=== PATIENT | female | born 1940 | race Caucasian/White ===

== ENCOUNTER 2018-08-10 09:50 | Emergency (ER) | payer OTHER, MEDICARE ==
[2018-08-10 09:57] VITALS: BP 149/78; PULSE 74; TEMP 97.8; BMI 26.5
--- NOTE | 2018-08-10 10:54 | PDOC ---
History of Present Illness - General Chief Complaint: Injury Stated Complaint: FALL Time Seen by Provider: 08/10/18 10:19 History Source: Patient Exam Limitations: No Limitations - History of Present Illness Initial Comments: 08/10/18 10:37 77-year-old female presents to the emergency room with complaints of left upper/ mid back pain worsened with movement and deep breathing. Patient states 3 days ago fell down 7 carpeted steps after missing a step. Patient states has been taking tramadol since with moderate relief but decided to come to the ER when symptoms continued today. Patient denies anterior chest pain, abdominal pain, low back pain hematuria, anticoagulation therapy, or recent injury to the affected area. Occurred: reports: other Severity: reports: mild Pain Location: reports: back Method of Injury: Yes: fall Loss of Consciousness: no loss of consciousness Associated Symptoms (Fall): denies symptoms Past History - Travel Traveled outside of the country in the last 30 days: No Close contact w/someone who was outside of country & ill: No - Past Medical History Allergies/Adverse Reactions: Allergies Allergy/AdvReac Type Severity Reaction Status Date / Time No Known Drug Allergies Allergy Verified 08/10/18 09:52 Home Medications: Ambulatory Orders Simvastatin [Zocor -] 10 mg PO HS #0 tablet 10/23/12 Tramadol HCl [Ultram] 50 mg PO TID 08/10/18 COPD: No Hypercholesterolemia: Yes - Immunization History Immunization Up to Date: Yes - Suicide/Smoking/Psychosocial Hx Smoking History: Never smoked Hx Alcohol Use: No Drug/Substance Use Hx: No Patient Lives Alone: No Lives with/in: spouse/SO Trauma Specific PMHX - Complaint Specific PMHX Back Injury: No Review of Systems - Review of Systems Able to Perform ROS?: No Constitutional: No: Symptoms Reported HEENTM: No: Symptoms Reported Respiratory: No: Symptoms reported Cardiac (ROS): No: Symptoms Reported, Chest Pain ABD/GI: No: Symptoms Reported : No: Symptoms Reported Musculoskeletal: Yes: Joint Pain (left ribs left back) Integumentary: Yes: Bruising (right upper back) Neurological: No: Headache, Dizziness *Physical Exam - Vital Signs Last Vital Signs Temp Pulse Resp BP Pulse Ox 97.8 F 74 18 149/78 96 08/10/18 09:54 08/10/18 09:54 08/10/18 09:54 08/10/18 09:54 08/10/18 09:54 - Physical Exam General Appearance: Yes: Nourished, Appropriately Dressed. No: Apparent Distress HEENT: positive: EOMI, NICOLÁS, TMs Normal, Pharynx Normal. negative: Pale Conjunctivae Neck: positive: Supple. negative: Decreased range of motion Respiratory/Chest: positive: Lungs Clear, Normal Breath Sounds. negative: Chest Tender, Respiratory Distress, Accessory Muscle Use Cardiovascular: positive: Regular Rhythm, Regular Rate. negative: Murmur Gastrointestinal/Abdominal: positive: Soft. negative: Tenderness Musculoskeletal: negative: CVA Tenderness, Vertebral Tenderness Integumentary: positive: Normal Color, Warm, Moist, Bruising (right upper back) Neurologic: positive: Normal Mood/Affect, Motor Strength 5/5 (ambulatory) Moderate Sedation - Procedure Monitoring Vital Signs: Procedure Monitoring Vital Signs Temperature 97.8 F 08/10/18 09:54 Pulse Rate 74 08/10/18 09:54 Respiratory Rate 18 08/10/18 09:54 Blood Pressure 149/78 08/10/18 09:54 O2 Sat by Pulse Oximetry (%) 96 08/10/18 09:54 Heart Score/ECG Review - ECG Intrepretation Rhythm: Regular Rhythm (Normal sinus rhythm at 64) ED Treatment Course - RADIOLOGY Radiology Studies Ordered: Category Date Time Status RIBS-LEFT SIDE [RAD] Stat Radiology 08/10/18 10:19 Taken Medical Decision Making - Medical Decision Making 08/10/18 10:44 Chief complaint: Left posterior back pain worsened with movement deep breathing. Status post fall down 7 carpeted steps 3 days prior. No anterior chest pain no abdominal pain Exam: Tenderness noted over midclavicular line to the left posterior 9 to 11th rib. No crepitus noted deformity Plan: Rib x-ray and EKG ordered 08/10/18 11:03 Rib x-ray essentially negative. Patient remains concerning for fracture. Patient would've for CT without contrast of the chest 08/10/18 12:35 Chest negative for acute findings. Radiologist did read compression of T6. Patient had no tenderness to the vertebral column . Patient will be discharged home with supportive care instructions for rib contusion. 08/10/18 12:36 *DC/Admit/Observation/Transfer Diagnosis at time of Disposition: Contusion of rib on left side - Discharge Dispostion Disposition: HOME Condition at time of disposition: Good - Referrals Referrals: Tavo Steinberg MD [Primary Care Provider] - - Patient Instructions Printed Discharge Instructions: DI for Rib Contusion Additional Instructions: At this time there was no suggestive findings of rib fracture. I do recommend alternating the tramadol with Motrin 600 mg as needed. If you have symptoms do not improve and worsen over the next 4 days please return to the ED. Otherwise may follow up with your primary care physician as needed - Post Discharge Activity
--- NOTE | 2018-08-11 16:58 | EKG ---
Test Reason : Blood Pressure : / mmHG Vent. Rate : 064 BPM Atrial Rate : 064 BPM P-R Int : 144 ms QRS Dur : 090 ms QT Int : 398 ms P-R-T Axes : 038 -07 003 degrees QTc Int : 410 ms NORMAL SINUS RHYTHM NONSPECIFIC ST ABNORMALITY BORDERLINE ECG Confirmed by MD ELA, ADAM ([id number]) on 08/11/2018 4:58:10 PM Referred By: MICHAEL Confirmed By:ADAM MAHMOOD MD
== END 2018-08-10 12:47 | disposition home or self-care (01) ==
LOC: JERFT 09:50
DX: S20.222A Contusion of left back wall of thorax, initial encounter (principal); W10.8XXA Fall (on) (from) other stairs and steps, initial encounter; Y93.89 Activity, other specified; Y92.018 Other place in single-family (private) house as the place of occurrence of the external cause; Y99.8 Other external cause status; E78.00 Pure hypercholesterolemia, unspecified
CPT/HCPCS: 71101-TC-LT-FY; 71250-TC; 93005; 93010; 99281-25